=== PATIENT | female | born 1945 | race Hispanic/Latino ===

== ENCOUNTER 2025-09-24 10:52 | Outpatient (CLI) | payer MEDICARE | END 2025-09-24 10:53 | disposition home or self-care (01) | LOC: BICCT 10:52 | PROVIDERS: ATTEND Nurse Practitioner Acute Care | DX: S06.5XAA Traumatic subdural hemorrhage with loss of consciousness status unknown, initial encounter (principal) | CPT/HCPCS: 70450 ==